=== PATIENT | female | born 1940 | race Caucasian/White ===

== ENCOUNTER → 2018-11-01 | Day surgery (SDC) | payer MEDICARE, MEDICAID ==
[2018-10-31 11:08] LABS: Basophils # (auto) 0.1 uL; Basophils % (auto) 0.9 % (0.0-2.0); Lymphocytes % (auto) 25.6 % (10.0-50.0); Neutrophils % (auto) 60.8 % (37.0-80.0); Nucleated Red Blood Cells % 0.1 %
[2018-10-31 11:10] LABS: Eosinophils # (auto) 0.1 uL; Eosinophils % (auto) 1.5 % (0.0-7.0); Hematocrit 53.3 % (36.0-46.0); Lymphocytes # (auto) 2.5 uL; Mean Corpuscular Hemoglobin 30.5 pg (28.0-32.0); Mean Corpuscular Hgb Conc. 33.7 g/dL (32.0-36.0); Mean Corpuscular Volume 90.5 fL (80.0-100.0); Monocytes # (auto) 1.1 uL; Monocytes % (auto) 11.2 % (0.0-12.0); Platelet Count (auto) 202 10^3/uL (140-450); Red Blood Cells 5.89 10^6/uL (4.0-5.20); Red Cell Distribution Width 15.1 % (11.8-14.3); White Blood Cell 9.8 10^3/uL (4.4-10.8)
[2018-10-31 11:27] LABS: INR 0.96 (0.9-1.15); Partial Thromboplastin Time 24.9 sec (23.64-32.05)
[~2018-11-01] VITALS: Ht 167.6 cm; Wt 93.4 kg
[~2018-11-01] MED LIST: CARI-277 PO; EPINEPHrine HCL 1 MG/1 ML AMP ONE; FLUMAZENIL 0.1 MG/ML INJ 10ML MDV IV ONE; FURO40TA4 PO; GLYCOPYRROLATE 0.2 MG/ML 1ML VIAL ONE; HYDR-531 PO; IPRATROPIUM BROM 0.5 MG/2.5ML INH SOL NEB ONE; IPRATROPIUM BROM 0.5 MG/2.5ML INH SOL ONE; LIDOCAINE 2%HCL (LOCAL ANESTH.) INJ 20ML MDV ONE; LIDOCAINE HCL 2% TOP JELLY 5ML TOP ONE; METO25TA5 PO; MULTTAB61 PO; NALOXONE HCL 0.4 MG/ML VIAL ONE; SODIUM CHLORIDE LOCK 30 ML ONE
[2018-11-01] MEDS: fentaNYL CITRATE 100 MCG/2 ML VL ONE ×2 (09:24→09:31)
[2018-11-01] MEDS: MIDAZOLAM HCL 5 MG/ML-1ML VIAL ONE ×4 (09:24→09:37)
[2018-11-01 11:26] VITALS: BP 121/71
== END | disposition home or self-care (01) ==
LOC: GI 07:43
PROVIDERS: ATTEND Internal Medicine Pulmonary Disease
DX: J98.4 Other disorders of lung (principal); J18.8 Other pneumonia, unspecified organism; J44.9 Chronic obstructive pulmonary disease, unspecified; G89.4 Chronic pain syndrome; I10 Essential (primary) hypertension; E11.9 Type 2 diabetes mellitus without complications; M19.90 Unspecified osteoarthritis, unspecified site; D64.9 Anemia, unspecified; E66.9 Obesity, unspecified; F17.210 Nicotine dependence, cigarettes, uncomplicated; Z68.34 Body mass index [BMI] 34.0-34.9, adult; Z79.891 Long term (current) use of opiate analgesic; Z79.899 Other long term (current) drug therapy; Z98.49 Cataract extraction status, unspecified eye; Z90.710 Acquired absence of both cervix and uterus; Z90.49 Acquired absence of other specified parts of digestive tract; Z98.890 Other specified postprocedural states; Z88.0 Allergy status to penicillin; Z88.1 Allergy status to other antibiotic agents; Z88.2 Allergy status to sulfonamides; Z88.5 Allergy status to narcotic agent; Z88.8 Allergy status to other drugs, medicaments and biological substances
CPT/HCPCS: 31622; 36415; 82962; 85025; 85610; 85730; 87070; 87205; 88104; 88305; 88312; 88313; 94640; J0171; J2250; J3010; J7644; 99152